=== PATIENT | male | born 1960 | race African-American/Black ===

== ENCOUNTER 2020-09-19 02:45 | Emergency (ER) | payer MEDICAID ==
[~2020-09-19] VITALS: Ht 180.3 cm; Wt 80.0 kg
[2020-09-19 02:53] VITALS: BP 139/86
[2020-09-19 03:22] LABS: CLARITY URINE TURBID (CLEAR); COLOR URINE YELLOW (YELLOW); KETONES URINE 1+ (NEGATIVE); LEUKOCYTE ESTERASE URINE 3+ (NEGATIVE); NITRITE URINE POSITIVE (NEGATIVE); OCCULT BLOOD URINE 2+ (NEGATIVE); PH URINE 5.5 (4.5-8.0); PROTEIN URINE 2+ (NEGATIVE); SPECIFIC GRAVITY URINE 1.013 (1.005-1.030)
[2020-09-19] MEDS ORDERED: AZITHROMYCIN 500 MG TABLET PO ONE (03:45)
[2020-09-19] MEDS ORDERED: ACETAMINOPHEN 325MG TABLET PO ONE (03:45)
[2020-09-19] MEDS ORDERED: LIDOCAINE HCL 1% 20ML VIAL (Pyxis) INJ INFIL ONE (03:45)
[2020-09-19] MEDS ORDERED: CEFTRIAXONE SODIUM 250 MG/VIAL IM ONE (03:45)
[2020-09-22 04:08] LABS: NEISSERIA GONORRHOEAE NAA Positive (Negative)
== END 2020-09-19 05:03 | disposition home or self-care (01) ==
LOC: ER 02:45
DX: N39.0 Urinary tract infection, site not specified (principal); A54.09 Other gonococcal infection of lower genitourinary tract
CPT/HCPCS: 81003; 87086; 87491; 87591; 96372; 99283; J0696; J3490; 87077; 87186

== ENCOUNTER 2022-08-13 10:03 | Emergency (ER) | payer MEDICAID ==
[~2022-08-13] VITALS: Ht 172.7 cm; Wt 78.0 kg
[2022-08-13 10:06] VITALS: BP 134/98
== END 2022-08-13 14:36 | disposition left against medical advice (07) ==
LOC: ER 10:16
DX: Z53.21 Procedure and treatment not carried out due to patient leaving prior to being seen by health care provider (principal)

== ENCOUNTER 2022-08-13 15:51 | Emergency (ER) | payer MEDICAID, OTHER ==
[~2022-08-13] VITALS: Ht 172.7 cm; Wt 75.0 kg
[2022-08-13 15:58] VITALS: BP 136/81
[2022-08-13] MEDS ORDERED: LIDOCAINE 5% PATCH TOP SCH (17:30)
[2022-08-13] MEDS ORDERED: HYDROCODONE/ACETAMINOPHEN 5/325MG TABLET PO ONE (17:30)
[2022-08-13 18:00] LABS: BASOPHILS % 0.6 % (0.0-2.0); EOSINOPHILS % 5.2 % (0.0-5.0); HEMATOCRIT. 40.8 % (42.0-52.0); HEMOGLOBIN. 13.7 g/dL (14.0-18.0); LYMPHOCYTES % 32.4 % (20.0-50.0); MEAN CORPUSCULAR HEMOGLOBIN 27.9 pg (28.0-32.0); MEAN CORPUSCULAR VOLUME 83.1 fL (80.0-94.0); MEAN PLATELET VOLUME 6.4 fl (7.4-10.4); MONOCYTES % 7.6 % (2.0-8.0); NEUTROPHILS % 54.2 % (40.0-76.0); PLATELET 218 x1000/uL (130-400); RED BLOOD CELL COUNT 4.91 mill/uL (4.7-6.1); RED CELL DISTRIBUTION WIDTH 14.4 % (11.6-14.6)
[2022-08-13 18:04] LABS: CHLORIDE 106 mEq/L (98-107)
== END 2022-08-13 19:06 | disposition left against medical advice (07) ==
LOC: ER 15:51
DX: M54.50 Low back pain, unspecified (principal); M79.662 Pain in left lower leg; M79.661 Pain in right lower leg
CPT/HCPCS: 36415; 80048; 85025; 99283